=== PATIENT | female | born 1940 | race African-American/Black ===

== ENCOUNTER 2024-06-16 16:17 | Emergency (ER) | payer BC, MEDICARE ==
[~2024-06-16] VITALS: Ht 170.2 cm; Wt 69.0 kg
[2024-06-16 16:20] VITALS: BP 188/77; PULSE 91; RESP 16; TEMP 37.4; O2SAT 100
[2024-06-16] MEDS: ACETAMINOPHEN 325MG TABLET PO ONE (17:45)
[2024-06-16] MEDS ORDERED: TOPUD MT (19:52)
== END 2024-06-16 18:47 | disposition home or self-care (01) ==
LOC: ER 16:17
DX: M54.2 Cervicalgia (principal); M79.602 Pain in left arm; M79.642 Pain in left hand; I10 Essential (primary) hypertension; I67.82 Cerebral ischemia; Z88.5 Allergy status to narcotic agent; V43.52XA Car driver injured in collision with other type car in traffic accident, initial encounter; Y93.89 Activity, other specified; Y92.410 Unspecified street and highway as the place of occurrence of the external cause; Y99.8 Other external cause status
CPT/HCPCS: 73030; 73060; 73560; 99284